=== PATIENT | male | born 1985 | race Caucasian/White ===

== ENCOUNTER 2019-12-02 10:41 | Emergency (ER) | payer BC ==
[~2019-12-02] VITALS: Ht 182.9 cm; Wt 131.5 kg
[2019-12-02] MEDS ORDERED: TUSNEL LIQUID178 ML PO (16:01)
[2019-12-02] MEDS ORDERED: OSEL75CA PO (16:01)
[2019-12-02] MEDS ORDERED: ZITHROMAX500 MG PO (16:01)
[2019-12-02] MEDS ORDERED: DOLOGEN CAPLET1 EACH PO (16:01)
== END 2019-12-02 13:49 | disposition home or self-care (01) ==
LOC: ER 10:41
DX: I87.2 Venous insufficiency (chronic) (peripheral) (principal); R05 Cough; B96.0 Mycoplasma pneumoniae [M. pneumoniae] as the cause of diseases classified elsewhere